=== PATIENT | female | born 1990 | race African-American/Black ===

== ENCOUNTER 2016-11-03 06:36 | Emergency (ER) | payer SELFPAY ==
[2016-11-03 06:48] VITALS: RESP 16
--- NOTE | 2016-11-03 07:18 | ED ---
General Adult HPI - General Chief complaint: Extremity Problem,Nontraumatic Stated complaint: Leg Pain Time Seen by Provider: 11/03/16 07:09 Source: patient, RN notes reviewed Mode of arrival: ambulatory Limitations: no limitations - History of Present Illness Initial comments: Patient is a pleasant 25-year-old female presenting to the emergency department complaining of left leg discomfort. Onset was just a day ago. Patient has noticed redness. Symptoms are similar to previous DVT. Patient only had one previous DVT and was treated with Coumadin. Patient is no longer on Coumadin. Patient states discomfort is mild. No fevers. Discomfort does increase with touch. No chest pain or dyspnea - Related Data Home Medications Medication Instructions Recorded Confirmed Mesalamine [Asacol Hd] 800 mg PO TID 11/03/16 11/03/16 Previous Rx's Medication Instructions Recorded Cephalexin [Keflex] 500 mg PO Q6HR #40 cap 11/03/16 Allergies Allergy/AdvReac Type Severity Reaction Status Date / Time Sulfa (Sulfonamide Allergy Swelling Verified 01/10/15 13:17 Antibiotics) Review of Systems ROS Statement: Those systems with pertinent positive or pertinent negative responses have been documented in the HPI. ROS Other: All systems not noted in ROS Statement are negative. Constitutional: Denies: fever Eyes: Denies: eye pain ENT: Denies: ear pain Respiratory: Denies: cough Cardiovascular: Denies: chest pain Endocrine: Denies: fatigue Gastrointestinal: Denies: abdominal pain Genitourinary: Denies: dysuria Musculoskeletal: Denies: back pain Skin: Reports: rash Neurological: Denies: headache Past Medical History Past Medical History: Deep Vein Thrombosis (DVT) Additional Past Medical History / Comment(s): HX ULCERATIVE COLITIS History of Any Multi-Drug Resistant Organisms: None Reported Additional Past Surgical History / Comment(s): COLONOSCOPY Past Anesthesia/Blood Transfusion Reactions: No Reported Reaction Past Psychological History: No Psychological Hx Reported Smoking Status: Never smoker Past Alcohol Use History: Occasional Past Drug Use History: Marijuana Additional Drug Use History / Comment(s): COUPLE TIMES A WEEK, INSTRUCTED NOT TO USE 24 HRS PRIOR TO PROCEDURE General Exam Limitations: no limitations General appearance: alert, in no apparent distress Head exam: Present: atraumatic Eye exam: Present: normal appearance, PERRL ENT exam: Present: normal oropharynx Neck exam: Present: normal inspection Respiratory exam: Present: normal lung sounds bilaterally Cardiovascular Exam: Present: regular rate, normal rhythm GI/Abdominal exam: Present: soft. Absent: tenderness Extremities exam: Present: calf tenderness (Mild left leg. There is some mild erythema as well) Neurological exam: Present: alert Psychiatric exam: Present: normal affect, normal mood Skin exam: Absent: rash Course Vital Signs 11/03/16 06:42 Temperature 97.8 F Pulse Rate 87 Respiratory 16 Rate Blood Pressure 100/58 O2 Sat by Pulse 100 Oximetry Medical Decision Making - Medical Decision Making Patient updated on results and need for close follow-up. Patient advised to have repeat ultrasound in the next couple of days if symptoms continue. Patient advised to return if streaking up the leg. - Radiology Data Radiology results: report reviewed (Ultrasound negative for DVT) Disposition Clinical Impression: Cellulitis Disposition: HOME SELF-CARE Condition: Stable Instructions: Cellulitis (ED) Additional Instructions: Please follow-up with your primary care physician on Saturday. Consider repeat ultrasound if symptoms continue. Return for increased redness, pain, fever, streaking up the leg, swelling, worsening symptoms or any other concerns. Prescriptions: Cephalexin [Keflex] 500 mg PO Q6HR #40 cap Referrals: Loretta Lobo MD [Primary Care Provider] - 1-2 days
--- NOTE | 2016-11-03 08:24 | US ---
EXAMINATION TYPE: US venous doppler duplex LE LT DATE OF EXAM: 11/03/2016 8:03 AM COMPARISON: NONE CLINICAL HISTORY: Pain. LLE pain and edema, hx DVT came off of warfarin around 03/2016 SIDE PERFORMED: Left VESSELS IMAGED: External Iliac Vein (EIV) Common Femoral Vein Deep Femoral Vein Greater Saphenous Vein * Femoral Vein Popliteal Vein Small Saphenous Vein * Proximal Calf Veins (* superficial vessels) TECHNOLOGIST IMPRESSION: wnl, incidental lymph node seen in the left groin. Left Leg: Negative as seen for DVT IMPRESSION: 1. No deep venous thrombosis left lower extremity.
[2016-11-03] MEDS ORDERED: CEPHALEXIN 500 MG CAP PO STA (08:30)
[2016-11-03 08:53] VITALS: BP 109/66; PULSE 91; TEMP 98.3
== END 2016-11-03 08:55 | disposition home or self-care (01) ==
LOC: EC 06:36
DX: L03.116 Cellulitis of left lower limb (principal); Z86.718 Personal history of other venous thrombosis and embolism; Z79.899 Other long term (current) drug therapy; Z88.2 Allergy status to sulfonamides
CPT/HCPCS: 99283

== ENCOUNTER 2019-01-13 10:11 | Emergency (ER) | payer MEDICAID ==
[2019-01-13 10:19] VITALS: RESP 18
[2019-01-13] MEDS ORDERED: SODIUM CHLORIDE 0.9% 1,000 ML IV STA ×2 (10:26→11:47)
[2019-01-13] MEDS ORDERED: METOCLOPRAMIDE 5 MG/ML 2 ML VIAL IVP STA (10:26)
--- NOTE | 2019-01-13 10:34 | ED ---
General Adult HPI - General Chief complaint: Nausea/Vomiting/Diarrhea Stated complaint: APX 12 WEEKS PREG, NAUSEA, VOMITING Time Seen by Provider: 01/13/19 10:20 Source: patient, RN notes reviewed Mode of arrival: ambulatory Limitations: no limitations - History of Present Illness Initial comments: Patient 28-year-old female presented to the emergency room today with chief complaint of symptoms of nausea vomiting, diarrhea that started approximately 11 PM last night. Patient does admit that she's had multiple episodes throughout the night. Since been able to fall asleep which wakes up continues to have these symptoms. Patient states that she had some cramping. Denies any vaginal bleeding or discharge. She does admit that she is approximately by ultrasound. Patient denies any other complaints or symptoms. Patient denies any recent fever, chills, shortness of breath, chest pain, back pain, numbness or tingling, dysuria or hematuria, constipation, headaches or visual changes, or any other complaints. - Related Data Home Medications Medication Instructions Recorded Confirmed Aspirin [Adult Low Dose Aspirin EC] 81 mg PO DAILY 01/13/19 01/13/19 Pnv No.95/Ferrous Fum/Folic AC 1 tab PO DAILY 01/13/19 01/13/19 [ Multivitamin Tablet] Previous Rx's Medication Instructions Recorded Metoclopramide HCl [Reglan] 10 mg PO Q6HR PRN #10 tab 01/13/19 Allergies Allergy/AdvReac Type Severity Reaction Status Date / Time Sulfa (Sulfonamide Allergy Swelling Verified 01/13/19 10:37 Antibiotics) Review of Systems ROS Statement: Those systems with pertinent positive or pertinent negative responses have been documented in the HPI. ROS Other: All systems not noted in ROS Statement are negative. Past Medical History Past Medical History: Deep Vein Thrombosis (DVT) Additional Past Medical History / Comment(s): HX ULCERATIVE COLITIS, PCOS History of Any Multi-Drug Resistant Organisms: None Reported Additional Past Surgical History / Comment(s): COLONOSCOPY Past Anesthesia/Blood Transfusion Reactions: No Reported Reaction Past Psychological History: No Psychological Hx Reported Smoking Status: Never smoker Past Alcohol Use History: Occasional Past Drug Use History: Marijuana General Exam - General Exam Comments Initial Comments: General: The patient is awake and alert, in no distress, and does not appear acutely ill. Eye: There is normal conjunctiva bilaterally. No signs of icterus. Ears, nose, mouth and throat: There are moist mucous membranes and no oral lesions. Neck: The neck is supple, there is no tenderness or JVD. Cardiovascular: There is a regular rate and rhythm. No murmur, rub or gallop is appreciated. Respiratory: Lungs are clear to auscultation, respirations are non-labored, breath sounds are equal. No wheezes, stridor, rales, or rhonchi. Gastrointestinal: Soft, non-distended, non-tender abdomen without masses or o rganomegaly noted. There is no rebound or guarding present. No CVA tenderness. Bowel sounds are unremarkable. Musculoskeletal: Normal ROM, no tenderness. Neurological: A&O x 3. CN II-XII intact, There are no obvious motor or sensory deficits. Coordination appears grossly intact. Speech is normal. Skin: Skin is warm and dry and no rashes or lesions are noted. Psychiatric: Cooperative, appropriate mood & affect, normal judgment. Limitations: no limitations Course Vital Signs 01/13/19 10:16 Temperature 98.7 F Pulse Rate 95 Respiratory 18 Rate Blood Pressure 109/75 O2 Sat by Pulse 99 Oximetry Medical Decision Making - Medical Decision Making Patient reexamined at this time shows no signs of distress. She states she is feeling much better here in emergency room. Case discussed with attending physician Dr. Draper. Patient tolerating by mouth fluids here in emergency room. At this time will be discharged home. Will be given a prescription of nausea medication to use if needed. Advised following up with her BENEFITS COUNSELOR over the next 2 days. Advised return here to the emergency room for any symptoms increase worsen or for any other concerns. - Lab Data Result diagrams: 01/13/19 10:41 01/13/19 10:41 Lab Results 01/13/19 01/13/19 01/13/19 Range/Units 10:41 10:41 10:52 WBC 7.1 (3.8-10.6) k/uL RBC 3.93 (3.80-5.40) m/uL Hgb 13.0 (11.4-16.0) gm/dL Hct 37.0 (34.0-46.0) % MCV 93.9 (80.0-100.0) fL MCH 33.0 (25.0-35.0) pg MCHC 35.2 (31.0-37.0) g/dL RDW 12.5 (11.5-15.5) % Plt Count 231 (150-450) k/uL Neutrophils % 91 % Lymphocytes % 5 % Monocytes % 3 % Eosinophils % 1 % Basophils % 0 % Neutrophils # 6.4 (1.3-7.7) k/uL Lymphocytes # 0.3 L (1.0-4.8) k/uL Monocytes # 0.2 (0-1.0) k/uL Eosinophils # 0.1 (0-0.7) k/uL Basophils # 0.0 (0-0.2) k/uL Sodium 133 L (137-145) mmol/L Potassium 3.9 (3.5-5.1) mmol/L Chloride 104 (98-107) mmol/L Carbon Dioxide 21 L (22-30) mmol/L Anion Gap 8 mmol/L BUN 12 (7-17) mg/dL Creatinine 0.39 L (0.52-1.04) mg/dL Est GFR (CKD-EPI)AfAm >90 (>60 ml/min/1.73 sqM) Est GFR (CKD-EPI)NonAf >90 (>60 ml/min/1.73 sqM) Glucose 105 H (74-99) mg/dL Calcium 9.5 (8.4-10.2) mg/dL Total Bilirubin 0.3 (0.2-1.3) mg/dL AST 31 (14-36) U/L ALT 38 (9-52) U/L Alkaline Phosphatase 72 (38-126) U/L Total Protein 6.9 (6.3-8.2) g/dL Albumin 4.0 (3.5-5.0) g/dL Amylase 132 H (30-110) U/L Lipase 67 (23-300) U/L Urine Color Yellow Urine Appearance Cloudy H (Clear) Urine pH 6.0 (5.0-8.0) Ur Specific [place] 1.029 (1.001-1.035) Urine Protein 1+ H (Negative) Urine Glucose (UA) Negative (Negative) Urine Ketones 2+ H (Negative) Urine Blood Small H (Negative) Urine Nitrite Negative (Negative) Urine Bilirubin Negative (Negative) Urine Urobilinogen <2.0 (<2.0) mg/dL Ur Leukocyte Esterase Small H (Negative) Urine RBC 1 (0-5) /hpf Urine WBC 6 H (0-5) /hpf Ur Squamous Epith Cells 20 H (0-4) /hpf Urine Bacteria Rare H (None) /hpf Urine Mucus Few H (None) /hpf Disposition Clinical Impression: Nausea vomiting and diarrhea, Disposition: HOME SELF-CARE Condition: Good Instructions (If sedation given, give patient instructions): Acute Nausea and Vomiting (ED) Additional Instructions: Please use medication as discussed. Please follow-up with family doctor in the next 2 days of symptoms have not improved. Please return to emergency room if the symptoms increase or worsen or for any other concerns. Prescriptions: Metoclopramide HCl [Reglan] 10 mg PO Q6HR PRN #10 tab PRN Reason: Nausea Is patient prescribed a controlled substance at d/c from ED?: No Referrals: None,Stated [Primary Care Provider] - 1-2 days Claudia Price DO [Doctor of Osteopathic Medicine] - 1-2 days Time of Disposition: 12:50
[2019-01-13 10:57] LABS: Basophils % (A) 0 %; Eosinophils # (A) 0.1 k/uL (0-0.7); Eosinophils % (A) 1 %; Lymphocytes # (A) 0.3 k/uL (1.0-4.8); Lymphocytes % (A) 5 %; MCHC 35.2 g/dL (31.0-37.0); MCV 93.9 fL (80.0-100.0); Mean Platelet Volume 7.3; Monocytes # (A) 0.2 k/uL (0-1.0); Monocytes % (A) 3 %; Neutrophils # (A) 6.4 k/uL (1.3-7.7); Neutrophils % (A) 91 %; Platelet Count 231 k/uL (150-450); RBC 3.93 m/uL (3.80-5.40); RDW 12.5 % (11.5-15.5); WBC 7.1 k/uL (3.8-10.6)
[2019-01-13 11:03] LABS: ALT 38 U/L (9-52); AST 31 U/L (14-36); Alkaline Phosphatase 72 U/L (38-126); Amylase 132 U/L (30-110); Anion Gap 8 mmol/L; Blood Urea Nitrogen 12 mg/dL (7-17); Calcium 9.5 mg/dL (8.4-10.2); Carbon Dioxide 21 mmol/L (22-30); Chloride 104 mmol/L (98-107); Glucose 105 mg/dL (74-99); Lipase 67 U/L (23-300); Potassium 3.9 mmol/L (3.5-5.1); Sodium 133 mmol/L (137-145); Total Bilirubin 0.3 mg/dL (0.2-1.3); Total Protein 6.9 g/dL (6.3-8.2)
[2019-01-13 11:16] LABS: Appearance,Urine Cloudy (Clear); Bacteria,Urine Rare /hpf; Bilirubin,Urine Negative (Negative); Blood,Urine Small (Negative); Color,Urine Yellow; Glucose,Urine (UA) Negative (Negative); Ketones,Urine 2+ (Negative); Leukocyte Esterase,Urine Small (Negative); Mucus,Urine Few /hpf; Nitrite,Urine Negative (Negative); Protein,Urine 1+ (Negative); RBC,Urine 1 /hpf (0-5); Specific Gravity,Urine 1.029 (1.001-1.035); Squamous Epithelial Cell,Urine 20 /hpf (0-4); Urobilinogen,Urine <2.0 mg/dL (<2.0); WBC,Urine 6 /hpf (0-5)
[2019-01-13 13:21] VITALS: BP 123/66; PULSE 93; TEMP 98.6
== END 2019-01-13 13:21 | disposition home or self-care (01) ==
LOC: EC 10:11
DX: O21.9 Vomiting of pregnancy, unspecified (principal); O99.89 Other specified diseases and conditions complicating pregnancy, childbirth and the puerperium; R19.7 Diarrhea, unspecified; Z87.19 Personal history of other diseases of the digestive system; Z79.82 Long term (current) use of aspirin; Z88.2 Allergy status to sulfonamides; Z3A.12 12 weeks gestation of pregnancy
CPT/HCPCS: 36415; 80053; 82150; 83690; 85025; 81001; 99284; 96374; 96361 ×2; J2765

== ENCOUNTER → 2019-03-24 | Outpatient (CLI) | payer OTHER ==
[2019-03-24 14:07] LABS: HCT 32.1 % (34.0-46.0); MCH 32.7 pg (25.0-35.0); MCHC 34.2 g/dL (31.0-37.0); MCV 95.6 fL (80.0-100.0); Mean Platelet Volume 7.4; Platelet Count 218 k/uL (150-450); RBC 3.35 m/uL (3.80-5.40); RDW 12.8 % (11.5-15.5); WBC 10.1 k/uL (3.8-10.6)
[2019-03-24 17:14] LABS: Erythrocyte Sedimentation Rate 50 mm/hr (0-20)
[2019-03-24 19:14] LABS: African American GFR (CKD) 144.8 (60.0-200.0); Albumin 3.8 g/dL (3.80-4.90); Albumin/Globulin Ratio 1.73 (1.60-3.17); Anion Gap 9.3 mmol/L (4.00-12.00); Calcium 9.3 mg/dL (8.7-10.3); Carbon Dioxide 18.7 mmol/L (21.6-31.8); Globulin 2.2 g/dL (1.6-3.3); Potassium 4.1 mmol/L (3.5-5.5); Total Bilirubin 0.2 mg/dL (0.2-1.2)
== END | disposition home or self-care (01) ==
LOC: LABWHC1 13:46
PROVIDERS: ATTEND Physician Assistant
DX: K51.90 Ulcerative colitis, unspecified, without complications (principal); R09.81 Nasal congestion; Z3A.19 19 weeks gestation of pregnancy
CPT/HCPCS: 36415; 80053; 85027; 85652

== ENCOUNTER 2019-05-07 14:44 | Outpatient (CLI) | payer OTHER ==
[2019-05-07 19:12] VITALS: BP 122/74; PULSE 88; RESP 16; TEMP 99
--- NOTE | 2019-05-24 14:11 | P.MSEPDOC ---
Presenting Problems - Arrival Data Date of Arrival on Unit: 05/07/19 Time of Arrival on Unit: 14:44 Mode of Transport: Ambulatory - Complaint OB-Reason for Admission/Chief Complaint: Other Comment: pt fell on her at work Medical History - Information : 1 Para: 0 Term: 0 : 0 Abortions: Spontaneous or Elective: 0 Number of Living Children: 0 - Gestational Age Gestational Age by TRUDY (wks/days): 28 Weeks and 0 Days Review of Systems - Review of Systems Constitutional: No problems Breast: No problems ENT: No problems Cardiovascular: No problems Respiratory: No problems Gastrointestinal: No problems Genitourinary: No problems Musculoskeletal: No problems Neurological: No problems Skin: No problems Vital Signs - Temperature Temperature: 99.0 F Temperature Source: Oral - Pulse Supine Pulse Rate: 88 Pulse Assessment Method: Auscultation - Respirations Respiratory Rate: 16 Oxygen Delivery Method: Room Air - Blood Pressure Sitting Blood Pressure: 122/74 Blood Pressure Mean: 90 Blood Pressure Source: Automatic Cuff Medical Screen Scoring (Pre) - Cervical Exam Dilation: Exam Deferred - Uterine Contractions Frequency: N/A, Scheduled / = 6 Duration: N/A Intensity: N/A - Maternal Vital Signs Maternal Temperature: N/A Signs of Preeclampsia: N/A Maternal Respirations: N/A - Maternal Trauma Maternal Trauma: N/A - Assessment - Baby A Baseline FHR: 135 Heart Rate - NICHD Category: Category I (Normal) = 0 NST: Reactive - Total Score - Baby A Total Score - Baby A: 6 - Total Score - Baby B Total Score - Baby B: 6 - Total Score - Baby C Total Score - Baby C: 6 - Level of Risk - Baby A Level of Risk - Baby A: Medium (6-9) - Level of Risk - Baby B Level of Risk - Baby B: Medium (6-9) - Level of Risk - Baby C Level of Risk - Baby C: Medium (6-9) Physician Notification (Pre) - Physician Notified Physician Notified Date: 05/07/19 Physician Notified Time: 15:30 Physician/Practitioner Notifed:: dr barroso New Order Received: Yes Disposition - Disposition OB Disposition: Discharge to home Discharge Date: 05/07/19 Discharge Time: 17:00 I agree with the RN Medical Screening Exam: Yes Risk & Benefit of care provided described in d/c instruction: Yes Diagnosis: ACUTE PAIN DUE TO TRAUMA
== END 2019-05-07 17:01 | disposition home or self-care (01) ==
LOC: FBPOP 14:44
PROVIDERS: ATTEND Obstetrics & Gynecology Obstetrics
DX: O9A.213 Injury, poisoning and certain other consequences of external causes complicating pregnancy, third trimester (principal); Z3A.28 28 weeks gestation of pregnancy
CPT/HCPCS: 59025; 99213

== ENCOUNTER 2019-06-16 14:58 | Outpatient (CLI) | payer OTHER ==
[2019-06-16] MEDS ORDERED: DIPH,PERTUS(ACELL)TETVAC-LF 0.5 ML VIAL IM ONE (15:31)
[2019-06-16] MEDS ORDERED: BETAMET ACET-BETAMETH SOD PHOS 6 MG/ML VIAL IM SCH (15:45)
[2019-06-16 16:27] VITALS: BP 137/77; PULSE 77; RESP 18; TEMP 98.5
== END 2019-06-16 16:05 | disposition home or self-care (01) ==
LOC: FBPOP 14:58
PROVIDERS: ATTEND Obstetrics & Gynecology Obstetrics
DX: O60.00 Preterm labor without delivery, unspecified trimester (principal); Z3A.00 Weeks of gestation of pregnancy not specified
CPT/HCPCS: 59025; 96372; 90715; J0702

== ENCOUNTER 2019-06-17 13:58 | Outpatient (CLI) | payer OTHER ==
[2019-06-17] MEDS ORDERED: BETAMET ACET-BETAMETH SOD PHOS 6 MG/ML VIAL IM ONE (14:08)
[2019-06-17 14:41] VITALS: BP 124/70; PULSE 91; RESP 16; TEMP 97.3
== END 2019-06-17 14:30 | disposition home or self-care (01) ==
LOC: FBPOP 13:58
PROVIDERS: ATTEND Obstetrics & Gynecology Obstetrics
DX: O60.00 Preterm labor without delivery, unspecified trimester (principal); Z3A.00 Weeks of gestation of pregnancy not specified
CPT/HCPCS: 59025; 99213; 96372; J0702

== ENCOUNTER 2019-06-30 22:20 | Inpatient (IN) | payer BC, OTHER ==
[~2019-06-30 22:20] MED LIST: ROPIVACAINE 5MG/ML 20ML VIAL ONE; SODIUM CHLORIDE 0.9% 100 ML BAG ONE; fentaNYL (PF) 50 MCG/ML 5 ML AMP ONE
[2019-06-30] MEDS ORDERED: TERBUTALINE 1 MG/ML VIAL SQ PRN (23:11)
[2019-06-30] MEDS ORDERED: OXYTOCIN 10 UNIT/ML 1 ML VIAL IM PRN (23:11)
[2019-06-30] MEDS ORDERED: PENICILLIN G POTASSIUM 5,000,000 UNIT in DEXTROSE 5% IN WATER 100 ML IVPB STA ×2 (23:11)
[2019-06-30] MEDS ORDERED: METHYLERGONOVINE 0.2 MG/ML 1 ML AMP IM PRN (23:11)
[2019-06-30] MEDS ORDERED: CARBOPROST TROMETHAMINE 250 MCG/ML 1 ML AMP IM PRN (23:11)
[2019-06-30] MEDS ORDERED: LIDOCAINE 0.5% (PF) 5 MG/ML (50 ML SDV) SQ PRN (23:11)
[2019-06-30] MEDS: LACTATED RINGERS 1,000 ML IV SCH (23:23)
[2019-06-30 23:26] LABS: Basophils % (A) 0 %; Eosinophils # (A) 0.3 k/uL (0-0.7); Eosinophils % (A) 4 %; HCT 33.2 % (34.0-46.0); HGB 11.8 gm/dL (11.4-16.0); Lymphocytes # (A) 2.3 k/uL (1.0-4.8); Lymphocytes % (A) 24 %; MCH 33.4 pg (25.0-35.0); MCHC 35.4 g/dL (31.0-37.0); MCV 94.3 fL (80.0-100.0); Mean Platelet Volume 6.9; Monocytes # (A) 0.6 k/uL (0-1.0); Monocytes % (A) 7 %; Neutrophils # (A) 6.2 k/uL (1.3-7.7); Neutrophils % (A) 63 %; Platelet Count 185 k/uL (150-450); RBC 3.52 m/uL (3.80-5.40); RDW 12.3 % (11.5-15.5); WBC 9.8 k/uL (3.8-10.6)
[2019-07-01 00:09] VITALS: BMI 32.3
[2019-07-01] MEDS: PENICILLIN G POTASSIUM 2,500,000 UNIT in DEXTROSE 5% IN WATER 100 ML IVPB SCH ×6 (03:14→11:23)
[2019-07-01] MEDS: OXYTOCIN 30 UNITS/500 ML NS 30 UNIT in SALINE 1 500ML.BAG IV SCH (04:09)
--- NOTE | 2019-07-01 05:04 | P.HPOB ---
History of Present Illness H&P Date: 07/01/19 Chief Complaint: 35+ weeks, spontaneous rupture of membranes The patient is a 28-year-old 2 para 0010 admitted at 35+ weeks as established by last menstrual period and confirmed by second trimester ultrasound. She is admitted with documented spontaneous rupture of membranes for clear fluid. Her has been complicated by history of deep venous thrombosis on 2 separate occasions for which she was referred to maternal medicine. Hemophilia workup was negative and she has been maintained on a baby aspirin and Lovenox throughout the with the intention to change to heparin at 36 weeks. Her last dose of Lovenox was approximately 24 hours prior to admission to the hospital. testing has been reassuring and there been no other complications to this point. Group B strep status is unknown. Obstetrical history: 2 para 0010 with 1 previous elective interruption of . Current statistics are listed in history of present illness. EDC of 07/30/2019 was established by last menstrual period and confirmed by second trimester ultrasound. Laboratory workup demonstrates a blood type of O+ with a negative antibody screen. Rubella status is immune. The remainder of the laboratory workup was within normal limits. One hour Glucola was normal and group B strep status has not yet been obtained. Gynecologic history: Unremarkable with no history of any infections to include STDs. Review of Systems Review of systems is confined to history of present illness. Past Medical History Past Medical History: Deep Vein Thrombosis (DVT) Additional Past Medical History / Comment(s): HX ULCERATIVE COLITIS, PCOS History of Any Multi-Drug Resistant Organisms: None Reported Additional Past Surgical History / Comment(s): COLONOSCOPY Past Anesthesia/Blood Transfusion Reactions: No Reported Reaction Past Psychological History: No Psychological Hx Reported Smoking Status: Never smoker Past Alcohol Use History: Occasional - Past Family History Mother Family Medical History: Hypertension Medications and Allergies Home Medications Medication Instructions Recorded Confirmed Type Pnv No.95/Ferrous Fum/Folic AC 1 tab PO DAILY MDD 4 tabs daily 01/13/19 06/30/19 History [ Multivitamin Tablet] Enoxaparin [Lovenox] 40 mg SQ DAILY 06/16/19 06/30/19 History Mesalamine [Lialda] 1.2 gm PO DAILY MDD 1.2 gm 06/16/19 06/30/19 History Allergies Allergy/AdvReac Type Severity Reaction Status Date / Time Sulfa (Sulfonamide Allergy Swelling Verified 06/30/19 22:28 Antibiotics) Exam Vital Signs Temp Pulse Resp BP Pulse Ox 06/30/19 23:10 97.9 F 88 16 140/63 100 06/30/19 22:45 97.4 F L 88 16 140/63 100 Intake and Output 06/30/19 06/30/19 07/01/19 14:59 22:59 06:59 Other: Weight 80.286 kg In general, this is a well-developed, well-nourished female in no acute distress. Her heart has a regular rhythm and rate without murmur. Her lungs are clear to auscultation bilaterally in all demarco. Her abdomen is gravid, nondistended, has normal active bowel sounds, soft, nontender, and without any palpable masses aside from uterine fundus. Her extremities are without any cyanosis, clubbing, or edema and are nontender to palpation bilaterally. Digital cervical examination on straights her cervix to be approximately 2 cm dilated, 80% effaced, the vertex in presentation at -2 station. Spontaneous rupture of membranes has been documented. Fluid is clear. Results Result Diagrams: 06/30/19 23:10 Abnormal Lab Results - Last 24 Hours (Table) 06/30/19 Range/Units 23:10 RBC 3.52 L (3.80-5.40) m/uL Hct 33.2 L (34.0-46.0) % Assessment and Plan (1) premature rupture of membranes Current Visit: Yes Status: Acute Code(s): O42.919 - PRETRM KARIN ROM, UNSP TIME BETW RUPT AND ONST LABR, UNSP TRI SNOMED Code(s): 917352504 (2) 35 to 36 weeks gestation of Current Visit: Yes Status: Acute Code(s): [id number] - SNOMED Code(s): 707096265 Plan: The patient has been admitted for active management of labor. Pitocin augmentation has been started as she has not the begin significant labor contractions on her own. She will continue to have close maternal and surveillance and expectant management will be practiced. She will likely be restarted on Lovenox following delivery but is otherwise a candidate for either IV or epidural analgesia, whichever she may choose, particularly as her last dose of Lovenox was within 24 hours ago.
[2019-07-01] MEDS ORDERED: BUTORPHANOL 1 MG/ML 1 ML VIAL IV PRN (05:54)
[2019-07-01] MEDS: LACTATED RINGERS 1,000 ML IV SCH (06:51)
[2019-07-01] MEDS ORDERED: diphenhydrAMINE 25 MG CAP PO PRN (12:10)
[2019-07-01] MEDS ORDERED: diphenhydrAMINE 50 MG/ML 1 ML VIAL IVP PRN ×2 (12:10)
[2019-07-01] MEDS ORDERED: LANOLIN CREAM 5 GM TUBE TOPICAL PRN (12:10)
[2019-07-01] MEDS ORDERED: diphenhydrAMINE 50 MG CAP PO PRN (12:10)
[2019-07-01] MEDS ORDERED: SIMETHICONE 80 MG CHEWABLE PO PRN (12:10)
[2019-07-01] MEDS ORDERED: ACETAMINOPHEN TAB 325 MG TAB PO PRN (12:10)
[2019-07-01] MEDS ORDERED: HYDROCORTISONE 2.5% RECTAL CREAM 30 GM TUBE RECTAL PRN (12:10)
[2019-07-01] MEDS ORDERED: ACETAMINOPHEN ORAL SUSP 160 MG/5 ML CUP PO PRN (12:10)
[2019-07-01] MEDS ORDERED: ZOLPIDEM 5 MG TAB PO PRN (12:10)
[2019-07-01] MEDS ORDERED: WITCH HAZEL 1 EACH MED..PAD TOPICAL PRN (12:10)
[2019-07-01] MEDS ORDERED: BENZOCAINE/MENTHOL SPRAY 1 GM/SPRAY AEROSOL TOPICAL PRN (12:10)
--- NOTE | 2019-07-01 12:14 | P.PROBDLV ---
Vaginal Delivery Note - . Vaginal Delivery Note: This is a pleasant 28-year-old that was admitted at 35-6/7 weeks with complaints of premature rupture of membranes. Patient states around 9 PM she started having little gushes of fluid and by 11 a large gush of fluid and she presented to the hospital. Patient denied contractions at that time. Patient was being watched closely throughout with maternal medicine secondary to history of a DVT for which she was on Lovenox. In addition she has a history of ulcerative colitis and has been being followed by her automated equipment engineer technician as well. Her care has been uneventful. Patient was admitted to labor and delivery and spontaneous labor was not achieved therefore Pitocin augmentation of labor was begun given her early gestational age and antibiotics were done. Patient became uncomfortable requested epidural epidural was placed without difficulty by the anesthesia department. Patient progressed to complete began pushing and had normal spontaneous vaginal delivery of a viable male infant. A spontaneous cry was noted at infant had a weight of 6 pounds and Apgars of 8 and 9 at one and 5 minutes respectively. After two-minute delay the umbilical cord was doubly clamped and cut. The placenta was delivered spontaneously intact with a three- vessel cord being noted. On inspection the patient's vaginal vault a right labial laceration was noted and a [id number] suture was used to repair. Hemostasis was appreciated on further inspection. No further lacerations were noted within the vaginal vault. The uterus is noted to be firm and below the lump umbilicus at this time, estimated blood loss 200 mL. Patient and infant tolerated delivery well and are resting comfortably.
[2019-07-01] MEDS: IBUPROFEN 600 MG TAB PO PRN ×2 (14:04→21:53)
[2019-07-01] MEDS: SENNOSIDES-DOCUSATE SODIUM 1 EACH TAB PO SCH (21:51)
[2019-07-02] MEDS: IBUPROFEN 600 MG TAB PO PRN ×3 (06:55→21:57)
[2019-07-02 07:38] LABS: Basophils # (A) 0.2 k/uL (0-0.2); Basophils % (A) 2 %; Eosinophils # (A) 0.3 k/uL (0-0.7); Eosinophils % (A) 3 %; Lymphocytes # (A) 1.5 k/uL (1.0-4.8); Lymphocytes % (A) 16 %; MCH 32.1 pg (25.0-35.0); MCHC 33.3 g/dL (31.0-37.0); MCV 96.4 fL (80.0-100.0); Mean Platelet Volume 8.8; Monocytes # (A) 0.7 k/uL (0-1.0); Monocytes % (A) 7 %; Neutrophils % (A) 70 %; Platelet Count 166 k/uL (150-450); RBC 3.42 m/uL (3.80-5.40); RDW 12.4 % (11.5-15.5); WBC 9.9 k/uL (3.8-10.6)
--- NOTE | 2019-07-02 08:52 | P.PNOBGVD ---
Subjective - Subjective Principal diagnosis: PPD 1 Interval history: Patient is doing well . On this day #1 she is ambulating and voiding without difficulty. She states her pain is well-controlled. She denies concerns her infant is in the nursery for low blood sugar. Patient reports: Reports appetite normal, Reports voiding normally, Reports pain well controlled, Reports ambulating normally : doing well (In the nursery) Objective - Latest Vital Signs Latest vital signs: Vital Signs Temp Pulse Resp BP 07/02/19 00:00 97.8 F 84 16 128/78 07/01/19 20:00 97.8 F 86 16 136/88 07/01/19 15:52 98.3 F 88 16 115/71 07/01/19 14:19 93 16 116/57 07/01/19 13:49 92 16 124/65 07/01/19 13:19 93 16 132/75 07/01/19 13:04 81 16 132/78 07/01/19 12:49 85 16 133/74 07/01/19 12:34 93 16 124/56 07/01/19 12:19 86 16 129/69 Intake and Output 07/01/19 07/02/19 07/02/19 22:59 06:59 14:59 Other: # Voids 1 - Exam Extremities: Present: normal Abdomen: Present: normal appearance, soft Uterus: Present: normal, firm - Labs Labs: Abnormal Lab Results - Last 24 Hours (Table) 07/02/19 Range/Units 06:44 RBC 3.42 L (3.80-5.40) m/uL Hgb 11.0 L (11.4-16.0) gm/dL Hct 33.0 L (34.0-46.0) % Assessment and Plan (1) Status post vaginal delivery Current Visit: Yes Status: Acute Code(s): [id number] - SNOMED Code(s): 334399812 (2) 35 to 36 weeks gestation of Current Visit: Yes Status: Acute Code(s): [id number] - SNOMED Code(s): 349964863 (3) History of DVT (deep vein thrombosis) Current Visit: Yes Status: Acute Code(s): Z86.718 - PERSONAL HISTORY OF OTHER VENOUS THROMBOSIS AND EMBOLISM SNOMED Code(s): 158643409 (4) premature rupture of membranes Current Visit: Yes Status: Acute Code(s): O42.919 - PRETRM KARIN ROM, UNSP TIME BETW RUPT AND ONST LABR, UNSP TRI SNOMED Code(s): 468868634
[2019-07-02] MEDS ORDERED: BALSALAZIDE DISODIUM 750 MG CAPSULE PO SCH (09:00)
[2019-07-02] MEDS: PRENATAL VIT-IRON-FOLIC ACID 1 EACH CAP PO SCH (09:02)
[2019-07-02] MEDS: SENNOSIDES-DOCUSATE SODIUM 1 EACH TAB PO SCH (09:03)
[2019-07-02] MEDS: ENOXAPARIN 40 MG/0.4 ML SYRINGE SQ SCH (09:04)
[2019-07-02] MEDS: LACTATED RINGERS 1,000 ML IV SCH ×2 (22:49→22:57)
[2019-07-02] MEDS: OXYTOCIN 30 UNITS/500 ML NS 30 UNIT in SALINE 1 500ML.BAG IV SCH (22:58)
[2019-07-02] MEDS: PENICILLIN G POTASSIUM 2,500,000 UNIT in DEXTROSE 5% IN WATER 100 ML IVPB SCH ×6 (22:59→23:01)
[2019-07-02] MEDS: BALSALAZIDE DISODIUM 750 MG CAPSULE PO SCH (23:03)
[2019-07-03] MEDS: SENNOSIDES-DOCUSATE SODIUM 1 EACH TAB PO SCH ×2 (00:41→08:00)
[2019-07-03] MEDS: IBUPROFEN 600 MG TAB PO PRN (07:07)
[2019-07-03] MEDS: ENOXAPARIN 40 MG/0.4 ML SYRINGE SQ SCH (09:29)
--- NOTE | 2019-07-03 09:47 | P.DS ---
Providers Date of admission: 06/30/19 22:41 Expected date of discharge: 07/03/19 Attending physician: Claudia Price Primary care physician: Stated None - Discharge Diagnosis(es) (1) Status post vaginal delivery Current Visit: Yes Status: Acute (2) 35 to 36 weeks gestation of Current Visit: Yes Status: Acute (3) History of DVT (deep vein thrombosis) Current Visit: Yes Status: Acute (4) premature rupture of membranes Current Visit: Yes Status: Acute Hospital Course: This is a 28-year-old that was admitted at 35-6/7 weeks with premature rupture of membranes. Patient was admitted minimal change was noted and Pitocin augmentation of labor was begun. Patient was started on IV antibiotics secondary to gestational age in addition. Patient progressed through labor eventually becoming uncomfortable requesting epidural placement by the anesthesia department. Patient progressed to complete began pushing and had normal spontaneous vaginal delivery of a viable male infant weight of 6 pounds, Apgars of 8 and 9 at one and 5 minutes respectively. Patient did sustain a right labial lacerations which was repaired with a [id number] suture of 0 Vicryl. Patient is doing well on this post day #2 she is ambulating and voiding without difficulty. She is tolerating a regular diet without nausea or vomiting. She states her pain is well-controlled. She denies concerns and wishes discharge home Patient Condition at Discharge: Good Plan - Discharge Summary New Discharge Prescriptions: No Action Pnv No.95/Ferrous Fum/Folic AC [ Multivitamin Tablet] 1 tab PO DAILY MDD 4 tabs daily Enoxaparin [Lovenox] 40 mg SQ DAILY Mesalamine [Lialda] 1.2 gm PO DAILY MDD 1.2 gm Discharge Medication List Pnv No.95/Ferrous Fum/Folic AC [ Multivitamin Tablet] 1 tab PO DAILY MDD 4 tabs daily 01/13/19 [History] Enoxaparin [Lovenox] 40 mg SQ DAILY 06/16/19 [History] Mesalamine [Lialda] 1.2 gm PO DAILY MDD 1.2 gm 06/16/19 [History] Follow up Appointment(s)/Referral(s): Claudia Price DO [Doctor of Osteopathic Medicine] - 4 Weeks Patient Instructions/Handouts: Vaginal Delivery (DC), Vaginal Delivery (GEN) Activity/Diet/Wound Care/Special Instructions: No tub baths or intercourse until 6 weeks . Discharge Disposition: HOME SELF-CARE
[2019-07-03 11:48] VITALS: BP 132/69; PULSE 88; RESP 18; TEMP 98.2
[2019-07-03] MEDS: PRENATAL VIT-IRON-FOLIC ACID 1 EACH CAP PO SCH (12:04)
== END 2019-07-03 16:45 | disposition home or self-care (01) | DRG 806 ==
LOC: FBPOP 22:20 → 4FBP 22:41
PROVIDERS: ADMIT Obstetrics & Gynecology; ATTEND Obstetrics & Gynecology Obstetrics
PROC: 10E0XZZ Delivery of Products of Conception, External Approach (ICD-10-PCS; principal; 2019-07-01)
PROC: 0HQ9XZZ Repair Perineum Skin, External Approach (ICD-10-PCS; 2019-07-01)
PROC: 00HU33Z Insertion of Infusion Device into Spinal Canal, Percutaneous Approach (ICD-10-PCS; 2019-07-01)
PROC: 3E0R3BZ Introduction of Anesthetic Agent into Spinal Canal, Percutaneous Approach (ICD-10-PCS; 2019-07-01)
DX: O42.913 Preterm premature rupture of membranes, unspecified as to length of time between rupture and onset of labor, third trimester (principal); K51.90 Ulcerative colitis, unspecified, without complications; Z37.0 Single live birth; O70.0 First degree perineal laceration during delivery; O99.62 Diseases of the digestive system complicating childbirth; O99.284 Endocrine, nutritional and metabolic diseases complicating childbirth; E28.2 Polycystic ovarian syndrome; Z3A.36 36 weeks gestation of pregnancy; Z86.718 Personal history of other venous thrombosis and embolism; Z88.2 Allergy status to sulfonamides; Z79.01 Long term (current) use of anticoagulants; Z82.49 Family history of ischemic heart disease and other diseases of the circulatory system
CPT/HCPCS: 59025; 84112; 85025; 86850; 86900; 86901; 88307; 99213

== ENCOUNTER → 2022-06-06 | Outpatient (CLI) | payer OTHER ==
[2022-06-06 16:40] LABS: Hepatitis A Antibody IgM Nonreactive (Nonreactive); Hepatitis B Core IgM Nonreactive (Nonreactive); Hepatitis B Surface Antigen Nonreactive (Nonreactive); Hepatitis C IgG Antibody Nonreactive (Nonreactive)
[2022-06-06 17:00] LABS: ALT 13 U/L (8-44); AST 20 U/L (13-35); African American GFR (CKD) 120.8 (60.0-200.0); Albumin 4.3 g/dL (3.8-4.9); Alkaline Phosphatase 104 U/L (41-126); BUN/Creat Ratio 15.67 Ratio (12.00-20.00); C Reactive Protein <0.30 mg/dL (0.00-0.80); Calcium 9.2 mg/dL (8.7-10.3); Carbon Dioxide 21.4 mmol/L (20.0-27.5); Chloride 108 mmol/L (96-109); Ferritin 56.6 ng/mL (10.0-291.0); Globulin 2.4 g/dL (1.6-3.3); Glucose 90 mg/dL (70-110); Iron 80 ug/dL (50-170); Non-African American GFR(CKD) 104.3 (60.0-200.0); Potassium 4.6 mmol/L (3.5-5.5); Sodium 139 mmol/L (135-145); Total Iron Binding Capacity 353 ug/dL (228-460); Total Protein 6.6 g/dL (6.2-8.2)
[2022-06-06 17:12] LABS: Chol/HDL Ratio 2.08 Ratio
[2022-06-06 17:22] LABS: Basophils # (A) 0.04 X 10*3/uL (0.00-0.10); Basophils % (A) 0.9 %; Eosinophils # (A) 0.39 X 10*3/uL (0.04-0.35); Eosinophils % (A) 8.4 %; HCT 38.6 % (37.2-46.3); HGB 12.9 g/dL (12.0-15.0); Immature Grans, Automated 0.2 %; Lymphocytes # (A) 1.78 X 10*3/uL (0.90-5.00); Lymphocytes % (A) 38.1 %; MCHC 33.4 g/dL (32.0-37.0); MCV 95.8 fL (80.0-97.0); Mean Platelet Volume 11.1 fL (9.5-12.2); Monocytes # (A) 0.63 X 10*3/uL (0.20-1.00); Monocytes % (A) 13.5 %; NRBC Per 100 WBC 0 /100 WBCS (0.0-0.0); Neutrophils # (A) 1.82 X 10*3/uL (1.80-7.70); Neutrophils % (A) 38.9 %; Platelet Count 259 X 10*3/uL (140-440); RBC 4.03 X 10*6/uL (4.10-5.20); RDW 12.4 % (11.5-14.5); WBC 4.67 X 10*3/uL (4.50-10.00)
[2022-06-06 17:58] LABS: Insulin Level 8.8 mIU/mL (3.0-25.0)
[2022-06-06 20:21] LABS: Erythrocyte Sedimentation Rate 18 mm/Hr (0-20)
[2022-06-07 05:33] LABS: Herpes simplex I and/or II IgM 0.8 INDEX (<=0.90); Herpes simplex IgG I Ab 0.34 (< or = 0.90); Herpes simplex IgG II Ab 4.37 (< or = 0.90)
== END | disposition home or self-care (01) ==
LOC: LABWHC1 10:27
PROVIDERS: ATTEND Nurse Practitioner Family
DX: Z00.01 Encounter for general adult medical examination with abnormal findings (principal); Z11.3 Encounter for screening for infections with a predominantly sexual mode of transmission; K51.80 Other ulcerative colitis without complications; E55.9 Vitamin D deficiency, unspecified; E28.2 Polycystic ovarian syndrome
CPT/HCPCS: 36415; 80053; 80061; 80074; 82306; 82607; 82728; 82746; 83036; 83525; 83540; 83550; 83721; 84439; 84443; 85025; 85652; 86140; 86694; 86695; 86696; 86780; 87390

== ENCOUNTER 2022-12-26 14:48 | Emergency (ER) | payer OTHER ==
[2022-12-26 15:21] VITALS: BP 126/83; PULSE 87; RESP 18; TEMP 98.3
[2022-12-26] MEDS ORDERED: KETOROLAC 15 MG/ML 1 ML VIAL IVP STA (15:35)
--- NOTE | 2022-12-26 15:44 | ED ---
ENT HPI - General Chief complaint: ENT Stated complaint: swollen neck/thyroid Time Seen by Provider: 12/26/22 15:23 Source: patient, RN notes reviewed Mode of arrival: ambulatory Limitations: no limitations - History of Present Illness Initial comments: This is a 32-year-old female who presents to the emergency department for pain and swelling to the left side of the face and jaw. States that this started abruptly yesterday. She went to [facility] who told her that she had a problem with the salivary gland. She was instructed to suck on lemon drops. She's been doing this with no relief in symptoms. States that it is also painful to do so. She continues to have pain and swelling to the left side of the face. Denies any history of similar symptoms in the past. She does not have any pain around the teeth or gums. Denies any fevers, difficulty swallowing, or difficult breathing. Denies any fevers, chills, sore throat, cough, dyspnea, chest pain, palpitations, abdominal pain, nausea, vomiting, diarrhea, back pain, or headaches. MD complaint: other (left sided facial pain/swelling) Onset/Timin -: days(s) - Related Data Previous Rx's Medication Instructions Recorded Amoxic-Pot Clav 875-125Mg 1 tab PO Q12HR 10 Days #20 tab 12/26/22 [Augmentin 875-125] Fluconazole [Diflucan] 150 mg PO DIRECTED #2 tab 12/26/22 Allergies Allergy/AdvReac Type Severity Reaction Status Date / Time Sulfa (Sulfonamide Allergy Swelling Verified 12/26/22 16:48 Antibiotics) Review of Systems ROS Statement: Those systems with pertinent positive or pertinent negative responses have been documented in the HPI. ROS Other: All systems not noted in ROS Statement are negative. Past Medical History Past Medical History: Deep Vein Thrombosis (DVT) Additional Past Medical History / Comment(s): HX ULCERATIVE COLITIS, PCOS History of Any Multi-Drug Resistant Organisms: None Reported Additional Past Surgical History / Comment(s): COLONOSCOPY Past Anesthesia/Blood Transfusion Reactions: No Reported Reaction Past Psychological History: No Psychological Hx Reported Past Alcohol Use History: Occasional - Past Family History Mother Family Medical History: Hypertension General Exam Limitations: no limitations General appearance: alert, in no apparent distress Head exam: Present: atraumatic, normocephalic, normal inspection ENT exam: Present: other (Swelling and tenderness to the left submandibular region. No overlying erythema. There is no swelling or induration to the floor of the mouth and the tongue is not elevated. Patient is able to fully open and close her mouth.) Respiratory exam: Present: normal lung sounds bilaterally. Absent: respiratory distress, wheezes, rales, rhonchi, stridor Cardiovascular Exam: Present: regular rate, normal rhythm, normal heart sounds. Absent: systolic murmur, diastolic murmur, rubs, gallop, clicks Neurological exam: Present: alert, oriented X3, CN II-XII intact Psychiatric exam: Present: normal affect, normal mood Skin exam: Present: warm, dry, intact Course Vital Signs 12/26/22 15:19 Temperature 98.3 F Pulse Rate 87 Respiratory 18 Rate Blood Pressure 126/83 O2 Sat by Pulse 96 Oximetry Medical Decision Making - Medical Decision Making This is a 32-year-old female who presents to the emergency department for left-sided facial pain and swelling. Was pt. sent in by a medical professional or institution? @ -No Did you speak to anyone other than the patient for history? @ -No Did you review nursing and triage notes? @ -Yes, and I agree, it is accurate with regards to the patient's symptoms. Were old charts reviewed? @ -No Differential Diagnosis? @ -Differential Facial Pain and Swelling: Dental abscess, sialadenitis, lymphadenopathy, Mike's angina, this is not meant to be an all-inclusive list. CT interpreted by me (1pt min.)? @ -Computed tomography scan of the facial bones and soft tissue neck obtained. My interpretation identifies enlargement of the left submandibular gland. What testing was considered but not performed? (CT, X-rays, U/S, labs)? Why? @ -None What meds were considered but not given? Why? @ -None Did you discuss the management of the patient with other professionals? @ -No Did you reconcile home meds? @ -No Was smoking cessation discussed for >3mins.? @ -No Was critical care preformed (if so, how long)? @ -No Were there social determinants of health that impacted care today? How? (Homelessness, low income, unemployed, alcoholism, drug addiction, transportation, low edu. Level, literacy, decrease access to med. care, usp, rehab)? @ -No Was there de-escalation of care discussed even if they declined? (Discuss DNR or withdrawal of care, Hospice)? @ -No What co-morbidities impacted this encounter? (DM, HTN, Smoking, COPD, CAD, Cancer, CVA, Hep., AIDS, mental health diagnosis, sleep apnea, morbid obesity)? @ -None Was patient admitted / discharged? @ -Discharged. Lab work obtained and found to be nonactionable. Toradol administered for pain relief. Computed tomography scan of the facial bones and soft tissue neck obtained. Findings are consistent with a sialoadenitis, however a stone is not visualized. The radiologist noted concern for that stranding into the floor of the mouth and advised clinical correlation for Mike's angina. Patient has no clinical presentation of Mike's angina. There is no swelling or induration to the floor of the mouth. Her tongue is not elevated or otherwise involved. She is afebrile and her lab work is remar kable. Will treat patient for sialoadenitis. Prescription for Augmentin provided with the first dose administered in the emergency department. Advised ibuprofen and Tylenol as needed for pain relief. We also discussed gently massaging the area. Prescription for Diflucan provided per the patient's request, as she states that she typically gets yeast infections with antibiotics. Recommended she also take a probiotic. Undiagnosed new problem with uncertain prognosis? @ -None Drug Therapy requiring intensive monitoring for toxicity (Heparin, Nitro, Insulin, Cardizem)? @ -None Were any procedures done? @ -None Diagnosis/symptom? @ -Sialoadenitis Acute, or Chronic, or Acute on Chronic? @ -Acute Uncomplicated (without systemic symptoms) or Complicated (systemic symptoms)? @ -Uncomplicated Side effects of treatment? @ -None Exacerbation, Progression, or Severe Exacerbation] @ -Not applicable Poses a threat to life or bodily function? @ -No Return precautions reviewed in depth, the patient is instructed to return to the emergency department with any new, worsening, or concerning symptoms. Patient verbalized understanding. This case was discussed in detail with the attending ED physician, Dr. Hodge. Presentation, findings, and treatment plan discussed in detail as well. - Lab Data Result diagrams: 12/26/22 15:57 12/26/22 15:57 Lab Results 12/26/22 12/26/22 12/26/22 Range/Units 15:57 15:57 15:57 WBC 7.3 (3.8-10.6) k/uL RBC 4.26 (3.80-5.40) m/uL Hgb 13.5 (11.4-16.0) gm/dL Hct 39.9 (34.0-46.0) % MCV 93.7 (80.0-100.0) fL MCH 31.8 (25.0-35.0) pg MCHC 34.0 (31.0-37.0) g/dL RDW 11.7 (11.5-15.5) % Plt Count 226 (150-450) k/uL MPV 8.2 Neutrophils % 60 % Lymphocytes % 23 % Monocytes % 5 % Eosinophils % 10 % Basophils % 1 % Neutrophils # 4.4 (1.3-7.7) k/uL Lymphocytes # 1.7 (1.0-4.8) k/uL Monocytes # 0.4 (0-1.0) k/uL Eosinophils # 0.8 H (0-0.7) k/uL Basophils # 0.1 (0-0.2) k/uL Sodium 136 L (137-145) mmol/L Potassium 4.3 (3.5-5.1) mmol/L Chloride 104 (98-107) mmol/L Carbon Dioxide 27 (22-30) mmol/L Anion Gap 5 mmol/L BUN 10 (7-17) mg/dL Creatinine 0.64 (0.52-1.04) mg/dL Est GFR (CKD-EPI)AfAm >90 (>60 ml/min/1.73 sqM) Est GFR (CKD-EPI)NonAf >90 (>60 ml/min/1.73 sqM) Glucose 93 (74-99) mg/dL Plasma Lactic Acid Sai 0.9 (0.7-2.0) mmol/L Calcium 9.0 (8.4-10.2) mg/dL Total Bilirubin 0.3 (0.2-1.3) mg/dL AST 80 H (14-36) U/L ALT 112 H (4-34) U/L Alkaline Phosphatase 80 (38-126) U/L C-Reactive Protein <0.5 (<1.0) mg/dL Total Protein 6.8 (6.3-8.2) g/dL Albumin 3.9 (3.5-5.0) g/dL - Radiology Data Radiology results: report reviewed, image reviewed Disposition Clinical Impression: Sialadenitis Disposition: HOME SELF-CARE Instructions (If sedation given, give patient instructions): Parotid Duct Obstruction (ED) Additional Instructions: Return to the emergency department with any new, worsening, or concerning symptoms. Take the antibiotic as prescribed for 10 days. Alternate with ibuprofen and Tylenol as needed for pain relief. You can also gently massage the area. Follow up with your primary care provider in 1-2 days. Prescriptions: Amoxic-Pot Clav 875-125Mg [Augmentin 875-125] 1 tab PO Q12HR 10 Days #20 tab Fluconazole [Diflucan] 150 mg PO DIRECTED #2 tab Is patient prescribed a controlled substance at d/c from ED?: No Referrals: Tyron Vincent MD [Primary Care Provider] - 1-2 days
[2022-12-26 16:18] LABS: Basophils # (A) 0.1 k/uL (0-0.2); Basophils % (A) 1 %; Eosinophils # (A) 0.8 k/uL (0-0.7); Eosinophils % (A) 10 %; HCT 39.9 % (34.0-46.0); HGB 13.5 gm/dL (11.4-16.0); Lymphocytes # (A) 1.7 k/uL (1.0-4.8); Lymphocytes % (A) 23 %; MCH 31.8 pg (25.0-35.0); MCV 93.7 fL (80.0-100.0); Mean Platelet Volume 8.2; Monocytes # (A) 0.4 k/uL (0-1.0); Monocytes % (A) 5 %; Neutrophils # (A) 4.4 k/uL (1.3-7.7); Neutrophils % (A) 60 %; Platelet Count 226 k/uL (150-450); RBC 4.26 m/uL (3.80-5.40); RDW 11.7 % (11.5-15.5); WBC 7.3 k/uL (3.8-10.6)
[2022-12-26 16:36] LABS: ALT 112 U/L (4-34); AST 80 U/L (14-36); African American GFR (CKD) >90 (>60 ml/min/1.73 sqM); Albumin 3.9 g/dL (3.5-5.0); Alkaline Phosphatase 80 U/L (38-126); Anion Gap 5 mmol/L; Blood Urea Nitrogen 10 mg/dL (7-17); Carbon Dioxide 27 mmol/L (22-30); Chloride 104 mmol/L (98-107); Glucose 93 mg/dL (74-99); Non-African American GFR(CKD) >90 (>60 ml/min/1.73 sqM); Potassium 4.3 mmol/L (3.5-5.1); Sodium 136 mmol/L (137-145); Total Bilirubin 0.3 mg/dL (0.2-1.3); Total Protein 6.8 g/dL (6.3-8.2)
[2022-12-26 16:49] LABS: C Reactive Protein <0.5 mg/dL (<1.0)
--- NOTE | 2022-12-26 17:25 | CT ---
EXAMINATION TYPE: CT soft tissue neck w con, CT facial bones w con CT DLP: 240.7 (accession [id number]), 638.2 (accession [id number]) mGycm, Automated exposure control for dose reduction was used. DATE OF EXAM: 12/26/2022 4:46 PM COMPARISON: None. CLINICAL INDICATION:Female, 32 years old with history of Left sided neck and facial pain and swelling ;, swelling to left side of jaw, c/o sore throat (accession [id number]), swelling to left side of jaw, c/o sore throat and jaw pain (accession [id number]) TECHNIQUE: Standard enhanced CT of the neck and facial structures.. Axial sections with coronal and sagittal reformats were obtained. Contrast used:100 mL of Isovue 300 with IV Contrast, Oral contrast used: none. FINDINGS: Brain: Visualized portions are grossly unremarkable. Orbits: The orbits and globes are intact. Intraconal and extraconal fat are intact. Sinuses: Grossly unremarkable. Spaces of the neck: Inflammation changes most pronounced along the left cheek and left neck. The left submandibular is asymmetrically enlarged measuring 2.9 x 2.8 cm. No organizing fluid collection. No obvious obstructing stone is identified. Fat stranding changes do extend into the floor the mouth. The adenoid enlargement is also present.. Musculoskeletal: No acute osseous pathology. No evidence for facial bone fracture. E long created sty loid processes bilaterally. Lymph nodes: Multiple nonenlarged lymph nodes are seen along both anterior chains of the neck. Vascular structures: Visualized major arteries are patent without evidence of aneurysm. Thoracic Inlet/airway: Airway is patent. The lung apices are clear. Soft tissues/Thyroid: Thyroid and remainder of the soft tissues are unremarkable. Other: none. IMPRESSION 1. Left neck submandibular gland sialoadenitis without obvious obstructing stone. No organizing flui d collection. 2. Fat stranding changes into the floor of mouth correlate for Mike's angina. 3. Adenoid enlargement present. 4. No evidence for facial bone fracture. 5. Elongated styloid processes which can be seen in setting [place] syndrome
[2022-12-26] MEDS ORDERED: AMOXIC-POT CLAV 875-125MG 1 EACH TAB PO STA (18:03)
[2022-12-26] MEDS ORDERED: IBUPROFEN 600 MG STARTER PACK 4 TAB BTL PO STA (18:06)
[2022-12-26] MEDS ORDERED: AMOXIC-POT CLAV 875MG STARTER PACK 2 TAB BTL PO STA (18:06)
== END 2022-12-26 18:43 | disposition home or self-care (01) ==
LOC: EC 14:48
DX: K11.20 Sialoadenitis, unspecified (principal); Z88.2 Allergy status to sulfonamides
CPT/HCPCS: 36415; 80053; 83605; 85025; 86140; 70487; 70491; 99284; 96374; J1885; Q9967